=== PATIENT | female | born 1965 | race Caucasian/White ===

== ENCOUNTER 2020-09-15 06:55 | Outpatient (CLI) | payer BC ==
[~2020-09-15] VITALS: Ht 160 cm; Wt 69.1 kg
[~2020-09-15 06:55] MED LIST: CEPH500C PO; HYDR-3454 PO; LAMO100T69 PO; SUMA50TA4 PO; TPR25T PO
[2020-09-15] MEDS ORDERED: SUMA50TA2 PO (09:48)
[2020-09-15] MEDS ORDERED: RT-ALBUINH IH (09:48)
[2020-09-15] MEDS ORDERED: HYDR-3922 PO (09:48)
[2020-09-15] MEDS ORDERED: LAMO100T5 PO (09:48)
[2020-09-15] MEDS ORDERED: MOME220A2 IH (09:50)
[2020-09-19] MEDS ORDERED: IBUP-1773 PO (08:44)
[2020-09-19] MEDS ORDERED: OXYC5TAB PO (08:44)
[2020-09-19] MEDS ORDERED: ACET-93 PO (08:44)
== END 2020-09-15 09:57 | disposition home or self-care (01) ==
LOC: PREOP 06:55
PROVIDERS: ATTEND Obstetrics & Gynecology
DX: Z01.818 Encounter for other preprocedural examination (principal)

== ENCOUNTER 2020-09-19 06:30 | Day surgery (SDC) | payer BC, OTHER ==
[~2020-09-19] VITALS: Ht 160 cm; Wt 69.1 kg
[2020-09-19] VITALS (9 sets, daily range): BP systolic 102–133; BP diastolic 69–90
[~2020-09-19 06:30] MED LIST changes: +HYDR-3922 PO; +LAMO100T5 PO; +MOME220A2 IH; +RT-ALBUINH IH; +SUMA50TA2 PO
[2020-09-19] MEDS ORDERED: LACTATED RINGERS 1,000 ML IV PRN (06:45)
[2020-09-19] MEDS ORDERED: ceFAZolin INJECTION 1,000 MG in WATER (STERILE) FOR INJECTION 10 ML IV ONE (06:45)
[2020-09-19] MEDS ORDERED: MIDAZOLAM 2 MG/2 ML (VERSED) VIAL ONE (07:09)
[2020-09-19] MEDS ORDERED: fentaNYL INJ 100 MCG/2 ML AMP ONE (07:09)
[2020-09-19] MEDS ORDERED: ONDANSETRON 4 MG/2 ML (SDV) Z0FRAN ONE (07:11)
[2020-09-19] MEDS ORDERED: proPOfol 200 MG/20 ML (DIPRIVAN) VIAL IV ONE (07:11)
[2020-09-19] MEDS ORDERED: LIDOCAINE PF 2% 5 ML (XYLOCAINE) VIAL ONE (07:11)
--- NOTE | 2020-09-19 07:12 | Progress Note-Pre Operative ---
Pre-Operative Progress Note H&P Reviewed The H&P was reviewed, patient examined and no changes noted. Date Seen by Provider: Sep 19, 2020 Time Seen by Provider: 07:20 Date H&P Reviewed: Sep 19, 2020 Time H&P Reviewed: 07:00 Pre-Operative Diagnosis: post menopausal bleeding, calcifications (abnormal) endometrium DANNY STEWART DO Sep 19, 2020 07:12
[2020-09-19] MEDS ORDERED: SEVOFLURANE (ULTANE) 15 ML INHAL SOLN ONE (08:34)
[2020-09-19] MEDS ORDERED: KETOROLAC 30 MG/ML VIAL ONE (08:37)
--- NOTE | 2020-09-19 08:42 | Operative Report ---
Operative Report Date of Procedure/Surgery Sep 19, 2020 Surgeon (s) DANNY STEWART DO Manager Mechanical (s): NA Post-Operative Diagnosis endometrial polyps, endometrial calcifications post menopausal bleeding Procedure Performed hysteroscopy, dilation and curettage Description of Procedure Anesthesia Type: General Estimated blood loss (mL): minimal Specimen(s) collected/removed endometrial curettings Description of the Procedure With informed consent the patient was taken to the operating room where general anesthesia was found to be adequate. She was prepped and draped in the usual sterile fashion in the dorsolithotomy position. The bladder was drained of clear yellow urine. A speculum was placed in the vagina and the cervix was grasped with a single toothed tenaculum and the cervix was gently dilated with tam dilators. The hysteroscope was then inserted and the findings are consistent with atrophic endometrium with polypoid areas noted. I then removed the hysteroscope and a curettage was done removing the polypoid areas. The scope was reinserted confirming the curettage was complete and there was not any active bleeding. The tenaculum was removed from the cervix. There was bleeding from the tenaculum site and this was repaired with 2-0 Vicryl in a figure of eight fashion. The instruments were removed and the patient was taken to recovery in a stable condition. Sponge and instrument counts were correct times two. There was < 50 ml defecit in the hysteroscopic fluid. Findings of the Procedure thin, atrophic endometrium with two areas of polypoid tissue that was removed completely. Allergies and Home Medications Allergies Coded Allergies: codeine (Verified Allergy, Mild, 02/28/14) PT REPORTS GIVES HER A HEADACHE morphine (Verified Adverse Reaction, Unknown, severe headache, 09/15/20) Home Medications Acetaminophen 500 Mg Tablet, 1,000 MG PO Q8H Prescribed by: DANNY STEWART on 09/19/20 0844 Albuterol Sulfate 1 Puff Puff, 2 PUFF IH Q4H PRN for WHEEZING, (Reported) 1 PUFF = 90 MCG Last Action: Last Taken Edited Hydralazine HCl 10 Mg Tablet, 10 MG PO DAILY, (Reported) Last Action: Last Taken Edited Ibuprofen 600 Mg Tablet, 600 MG PO Q6H PRN for PAIN-MILD Prescribed by: DANNY STEWART on 09/19/20 0844 Lamotrigine 100 Mg Tablet, 100 MG PO DAILY, (Reported) Last Action: Last Taken Edited Mometasone Furoate 220 Mcg Aer.pow.ba, 220 MCG IH DAILY, (Reported) Last Action: Last Taken Edited Oxycodone HCl 5 Mg Tablet, 5 MG PO Q6H Prescribed by: DANNY STEWART on 09/19/20 0845 Sumatriptan Succinate 50 Mg Tablet, 50 MG PO UD PRN for migraines, (Reported) Patient Home Medication List Home Medication List Reviewed: Yes DANNY STEWART DO Sep 19, 2020 08:42
[2020-09-19] MEDS ORDERED: IBUP-1773 PO (08:44)
[2020-09-19] MEDS ORDERED: ACET-93 PO (08:44)
[2020-09-19] MEDS ORDERED: OXYC5TAB PO (08:44)
[2020-09-19] MEDS ORDERED: KETOROLAC 30 MG/ML VIAL IVP ONE (08:45)
[2020-09-19] MEDS ORDERED: fentaNYL INJ 100 MCG/2 ML AMP IVP PRN (08:45)
--- NOTE | 2020-09-19 08:46 | Discharge Inst-Simple/Standard ---
Discharge Inst-Standard Reconcile Patient Problems Problems Reviewed?: Yes Discharge Medications New, Converted or Re-Newed RX: Transmitted to Pharmacy Patient Instructions/Follow Up Plan of Care/Instructions/FU: expect some bleeding, spotting for 1-2 weeks. Should get cook pie and cook pie Activity as Tolerated: Yes Discharge Diet: No Restrictions Return to The Hospital For: bleeding greater than 1 pad per hour x two hours Other Inst to Patient nothing in the vagina until bleeding has stopped (except tampon) May use tampon for bleeding if needed Planned Outpatient Orders/Ref. follow up with Dr. Stewart in 1-2 weeks for pathology review DANNY STEWART DO Sep 19, 2020 08:46
--- NOTE | 2020-09-19 08:57 | Anesthesia-General Post-Op ---
General Patient Condition Mental Status/LOC: Same as Preop Cardiovascular: Satisfactory Nausea/Vomiting: Absent Respiratory: Satisfactory Pain: Controlled Complications: Absent Post Op Complications Complications None Follow Up Care/Instructions Patient Instructions None needed. Anesthesia/Patient Condition Patient Condition Patient is doing well, no complaints, stable vital signs, no apparent adverse anesthesia problems. No complications reported per nursing. ROSY TRUJILLO CRNA Sep 19, 2020 08:57
[2020-09-19] MEDS ORDERED: fentaNYL INJ 100 MCG/2 ML AMP IVP ONE (09:00)
[2020-09-19] MEDS ORDERED: ONDANSETRON 4 MG/2 ML (SDV) Z0FRAN IVP PRN (09:00)
== END 2020-09-19 10:45 | disposition home or self-care (01) ==
LOC: SDC 06:30
PROVIDERS: ATTEND Obstetrics & Gynecology
DX: N84.0 Polyp of corpus uteri (principal); N95.0 Postmenopausal bleeding; J45.909 Unspecified asthma, uncomplicated; F32.9 Major depressive disorder, single episode, unspecified; Z79.891 Long term (current) use of opiate analgesic; Z79.899 Other long term (current) drug therapy; Z87.891 Personal history of nicotine dependence; Z98.51 Tubal ligation status
CPT/HCPCS: 84703; 87081